=== PATIENT | female | born 1970 | race Caucasian/White ===

== ENCOUNTER 2020-09-17 16:10 | Outpatient (CLI) | payer BC, SELFPAY ==
--- NOTE | ~2020-09-17 | MM_ITS ---
EXAMINATION: MM screening [facility] BI w dain HISTORY: Screening mammogram TECHNIQUE: Craniocaudal and mediolateral oblique 3-D tomosynthesis images were obtained and synthetic 2-D images were generated. CAD analysis was submitted and interpreted. COMPARISON: 01/22/2019, 11/09/2017 bilateral digital screening mammogram examinations BREAST PARENCHYMAL COMPOSITION: There are scattered areas of fibroglandular density. FINDINGS: There is no evidence of suspicious mass, calcification, or architectural distortion to sugg est malignancy in either breast. There has been no suspicious interval change. IMPRESSION: 1. No mammographic evidence of malignancy. 2. Recommend routine screening mammography in one year. BI-RADS Category 1: Negative Reviewed, dictated and finalized at location A. [employer]
== END 2020-09-17 16:11 | disposition home or self-care (01) ==
LOC: ANHIMG 16:14
PROVIDERS: PCP Internal Medicine; Visit Provider Obstetrics & Gynecology
DX: Z12.31 Encounter for screening mammogram for malignant neoplasm of breast (principal)
CPT/HCPCS: 77063; 77067

== ENCOUNTER 2020-12-04 09:54 | Outpatient (NON) | payer OTHER, SELFPAY ==
[2020-12-04 21:41] LABS: SARS-CoV-2 RNA PCR Negative
== END 2020-12-04 09:55 ==
PROVIDERS: Family Provider Family Medicine; PCP Internal Medicine; Visit Provider Internal Medicine
DX: Z20.822 Contact with and (suspected) exposure to COVID-19 (principal); J34.89 Other specified disorders of nose and nasal sinuses
CPT/HCPCS: C9803; U0003; U0005

== ENCOUNTER 2023-02-23 14:34 | Outpatient (CLI) | payer OTHER, SELFPAY ==
--- NOTE | ~2023-02-23 | MM_ITS ---
EXAMINATION: MM screening [facility] BI w dain HISTORY: Screening mammogram TECHNIQUE: Craniocaudal and mediolateral oblique 3-D tomosynthesis images were obtained and synthetic 2-D images were generated. CAD analysis was submitted and interpreted. COMPARISON: 09/17/2020, 01/22/2019, 11/26/2017 BREAST PARENCHYMAL COMPOSITION: There are scattered areas of fibroglandular density. FINDINGS: No suspicious mass, calcification, or architectural distortion are identified in either lasha ast to suggest malignancy. There has been no suspicious interval change. IMPRESSION: 1. No mammographic evidence of malignancy. 2. Recommend routine screening mammography in one year. BI-RADS Category 1: Negative Reviewed, dictated and finalized at location A.
== END 2023-02-23 14:35 | disposition home or self-care (01) ==
PROVIDERS: PCP Internal Medicine; Visit Provider Obstetrics & Gynecology Gynecology
DX: Z12.31 Encounter for screening mammogram for malignant neoplasm of breast (principal)
CPT/HCPCS: 77063; 77067

== ENCOUNTER 2023-04-25 08:42 | Outpatient (CLI) | payer OTHER, SELFPAY ==
--- NOTE | ~2023-04-25 | MR_ITS ---
MRI of the right ankle Clinical history: Posterior tibialis tendinitis Technique: Coronal proton-density and proton-density fat-sat images, axial proton-density and proton- density fat-sat images, and sagittal proton-density and proton-density fat-sat images were acquired. Findings: Syndesmotic ligaments are intact. Anterior and posterior talofibular ligaments, and calcane ofibular ligament are intact. Deltoid ligament is intact. There is probable mild to moderate tendinosis of the very distal tibialis posterior tendon. Remaining medial flexor tendons are intact. Peroneal tendons, anterior extensor tendons, and Achilles tendon a re intact. There is no osteochondral lesion of the talar dome. There are mild to moderate degenerative changes a t the tarsometatarsal joints. There is amorphous marrow edema extensively involving the navicular, wh ich could reflect bone contusion. There are minimal tibiotalar and subtalar joint effusions. There is a ganglion cyst in the region of the sinus Tarsi measuring approximately 1.5 x 0.9 cm (sagittal imag e 7). Impression: Amorphous marrow edema of the navicular. This could or focal bone contusion or possibly reactive mariola ow edema. Mild to moderate tendinosis of the very distal tibialis posterior tendon. Scattered mild to moderate degenerative changes of the tarsometatarsal joints. 1.5 x 0.9 cm ganglion cyst near the sinus Tarsi. Reviewed, dictated and finalized at [facility]. Impression: Amorphous marrow edema of the navicular. This could or focal bone contusion or possibly reactive marrow edema. Mild to moderate tendinosis of the very distal tibialis posterior tendon. Scattered mild to moderate degenerative changes of the tarsometatarsal joints. 1.5 x 0.9 cm ganglion cyst near the sinus Tarsi.
== END 2023-04-25 08:43 | disposition home or self-care (01) ==
PROVIDERS: PCP Internal Medicine; Visit Provider Podiatrist Foot & Ankle Surgery
DX: M76.821 Posterior tibial tendinitis, right leg (principal)
CPT/HCPCS: 73721